=== PATIENT | male | born 1935 | race Caucasian/White ===

== ENCOUNTER → 2017-08-29 | Outpatient (CLI) | payer OTHER | LOC: M PAIN 13:30 | DX: M54.2 Cervicalgia (principal); M79.1 Myalgia; M19.90 Unspecified osteoarthritis, unspecified site; Z79.899 Other long term (current) drug therapy; Z88.5 Allergy status to narcotic agent; Z88.8 Allergy status to other drugs, medicaments and biological substances; Z91.041 Radiographic dye allergy status; Z96.653 Presence of artificial knee joint, bilateral | CPT/HCPCS: G0463 ==

== ENCOUNTER → 2017-10-10 | Outpatient (CLI) | payer OTHER | LOC: M PAIN 13:00 | DX: M79.1 Myalgia (principal); M48.02 Spinal stenosis, cervical region; M19.90 Unspecified osteoarthritis, unspecified site; Z79.899 Other long term (current) drug therapy; Z88.5 Allergy status to narcotic agent; Z91.041 Radiographic dye allergy status; Z96.653 Presence of artificial knee joint, bilateral | CPT/HCPCS: G0463 ==

== ENCOUNTER → 2017-10-28 | Outpatient (CLI) | payer OTHER ==
[~2017-10-28] MED LIST: BUPIVACAINE HCL 0.25% 10 ML VIAL As Ordered; BUPIVACAINE HCL 0.25% 30 ML VIAL As Ordered; TRIAMCINOLONE ACETONIDE SUSP 40 MG/ML VIAL (J3301) As Ordered
== END ==
LOC: M PAIN 14:30
DX: G89.29 Other chronic pain (principal); M79.1 Myalgia; M54.2 Cervicalgia; M19.90 Unspecified osteoarthritis, unspecified site; Z79.899 Other long term (current) drug therapy; Z88.5 Allergy status to narcotic agent; Z88.8 Allergy status to other drugs, medicaments and biological substances; Z91.041 Radiographic dye allergy status; Z96.651 Presence of right artificial knee joint; Z96.652 Presence of left artificial knee joint
CPT/HCPCS: J3301

== ENCOUNTER → 2019-02-03 | Outpatient (CLI) | payer OTHER ==
[~2019-02-03] MED LIST changes: -BUPIVACAINE HCL 0.25% 10 ML VIAL As Ordered; -BUPIVACAINE HCL 0.25% 30 ML VIAL As Ordered; +CELE1CAP4 PO; +FISH1CAP14 PO; +GABA-845 PO; +GLUC1TAB PO; +OMEP40CA2 PO; +OXYC1TAB23 PO; -TRIAMCINOLONE ACETONIDE SUSP 40 MG/ML VIAL (J3301) As Ordered
--- NOTE | 2019-02-03 15:01 | REP ---
PET/CT: History: Diagnosing amyloidosis. Comparisons: No comparison imaging. 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 TECHNIQUE: 47 minutes following the intravenous injection of a 8.31 mCi dose of F-18 FDG, three-dimensional PET scintigraphy is acquired from the skull base to the proximal thighs. Triplanar noncontrast CT scanning is acquired through the same anatomic range for attenuation correction, and image registration with scan parameters optimized to minimize radiation exposure to the patient. PET scintigraphy and CT datasets were fused and displayed on a workstation with multiplanar and projection display capability. PET/CT Findings: Four-chamber cardiomegaly is observed. Distribution of FDG PET uptake in the left ventricle and right ventricular myocardium does not appear abnormal. FDG PET uptake in the cardiac myocardium is variable. There is a moderate sized hiatal hernia. No abnormal intrathoracic hypermetabolic uptake is seen. Head and neck region is unremarkable. There is mildly hypermetabolic uptake in a soft tissue density along the left posterolateral chest wall. Maximum standard uptake value is 2.73. The accompanying soft tissue density measures 5.2 x 2.3 cm in anteroposterior by medial to lateral dimension. Its craniocaudal span measures 4.6 cm. This is of uncertain significance. No abnormal hypermetabolic uptake is seen in the abdomen and pelvis. Study is otherwise unremarkable. Impression: No abnormal myocardial is seen. There is an asymmetric extrathoracic chest wall soft tissue density which shows mildly hypermetabolic uptake of uncertain significance. Consider ultrasound-guided or CT guided needle biopsy. Otherwise negative PET/CT study. Electronically Signed by Gus Dunn MD 02/03/2019 04:04 P
== END ==
LOC: M PLARAD 08:14
PROVIDERS: ATTEND Internal Medicine
DX: E85.9 Amyloidosis, unspecified (principal); R91.8 Other nonspecific abnormal finding of lung field
CPT/HCPCS: 78815; A9552

== ENCOUNTER 2020-08-18 10:34 | Emergency (ER) | payer OTHER ==
[~2020-08-18] VITALS: Ht 175.3 cm; Wt 84.8 kg
[~2020-08-18 10:34] MED LIST changes: -OMEP40CA2 PO; +OMEP40CA97 PO
--- NOTE | 2020-08-18 11:54 | REP ---
INDICATION: trauma. COMPARISON: None. TECHNIQUE: Four views of the right hand are presented. FINDINGS: Four views of the right hand demonstrate diffuse osteoporosis. Advanced osteoarthritic changes are seen at the IP joints of all 4 fingers and the thumb. 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 There is soft tissue swelling and some soft tissue gas with overlying dressing at the distal tuft of the 5th digit consistent with a distal tuft wound. No bony fracture is seen. No opaque foreign body is appreciated. . IMPRESSION: Soft tissue swelling and irregularity at the distal phalanx of the 5th finger. No acute fracture is seen. Advanced osteoarthritis. Diffuse osteoporosis.. <Electronically signed by Raghavendra Dunn > 08/18/20 [id number]
[2020-08-18] MEDS ORDERED: CEPHALEXIN 500 MG CAP PO ONE (12:15)
[2020-08-18] MEDS ORDERED: CEPH500T PO (13:13)
[2020-08-18 13:25] VITALS: BP 139/87
== END 2020-08-18 13:39 | disposition home or self-care (01) ==
LOC: M ED 10:34
DX: S60.151A Contusion of right little finger with damage to nail, initial encounter (principal); W22.8XXA Striking against or struck by other objects, initial encounter; Y92.019 Unspecified place in single-family (private) house as the place of occurrence of the external cause; Y93.9 Activity, unspecified; Y99.9 Unspecified external cause status; M19.041 Primary osteoarthritis, right hand; M81.0 Age-related osteoporosis without current pathological fracture; Z79.899 Other long term (current) drug therapy

== ENCOUNTER → 2022-04-12 | Outpatient (CLI) | payer OTHER ==
[~2022-04-12] MED LIST changes: +CEPH500T PO; +GABA-283 PO; -GABA-845 PO; +OMEP40CA4 PO; -OMEP40CA97 PO
== END ==
LOC: M RAD 09:30
PROVIDERS: ATTEND Nurse Practitioner Family
DX: R31.0 Gross hematuria (principal); Z53.9 Procedure and treatment not carried out, unspecified reason

== ENCOUNTER → 2022-05-09 | Outpatient (CLI) | payer OTHER ==
[~2022-05-09] MED LIST changes: +ISOVUE-370 76% 100ML VIAL As Ordered ONE
== END ==
LOC: M RAD 09:04
PROVIDERS: ATTEND Nurse Practitioner Family
DX: N28.1 Cyst of kidney, acquired (principal); K80.20 Calculus of gallbladder without cholecystitis without obstruction; K57.30 Diverticulosis of large intestine without perforation or abscess without bleeding; K76.89 Other specified diseases of liver
CPT/HCPCS: 74178; Q9967

== ENCOUNTER → 2023-02-04 | Outpatient (CLI) | payer OTHER ==
[~2023-02-04] MED LIST changes: -GABA-283 PO; +GABA-284 PO
== END ==
LOC: M RAD 13:54
PROVIDERS: ATTEND Internal Medicine Interventional Cardiology
DX: I73.9 Peripheral vascular disease, unspecified (principal)
CPT/HCPCS: 75635; Q9967

== ENCOUNTER 2023-03-24 15:11 | Emergency (ER) | payer OTHER ==
[~2023-03-24] VITALS: Ht 177.8 cm; Wt 86.1 kg
[~2023-03-24 15:11] MED LIST changes: -ISOVUE-370 76% 100ML VIAL As Ordered ONE
[2023-03-24] MEDS ORDERED: XARE2.5T PO (16:29)
[2023-03-24 16:50] VITALS: BP 151/94; TEMP 95.7; O2SAT 97
== END 2023-03-24 17:26 | disposition home or self-care (01) ==
LOC: EDBD 15:11 → M ED 15:11
DX: S30.0XXA Contusion of lower back and pelvis, initial encounter (principal); W01.0XXA Fall on same level from slipping, tripping and stumbling without subsequent striking against object, initial encounter; Z86.79 Personal history of other diseases of the circulatory system; Z88.5 Allergy status to narcotic agent; Z79.1 Long term (current) use of non-steroidal anti-inflammatories (NSAID); Z79.01 Long term (current) use of anticoagulants; Z91.041 Radiographic dye allergy status; Z79.891 Long term (current) use of opiate analgesic; Z79.899 Other long term (current) drug therapy; Y92.512 Supermarket, store or market as the place of occurrence of the external cause; Y93.89 Activity, other specified; Y99.9 Unspecified external cause status